=== PATIENT | male | born 1930 | race Two or more races ===

== ENCOUNTER 2016-07-28 15:17 | Emergency (ER) | payer MEDICARE ==
[~2016-07-28] VITALS: Ht 172.7 cm; Wt 63.5 kg
[2016-07-28 16:11] LABS: KETONES,URINE NEGATIVE (NEGATIVE); LEUKOCYTE ESTERASE ,URINE 2+ (NEGATIVE); NITRITE,URINE POSITIVE (NEGATIVE); PH,URINE 6.5 (4.5-8.0); PROTEIN,URINE 4+ (NEGATIVE); UROBILINOGEN,URINE NORMAL MG/DL (0.0-1.0)
[2016-07-28 16:14] LABS: APPEARANCE,URINE SLIGHTLY CLOUDY
[2016-07-28 16:38] LABS: AMORPHOUS SEDIMENT,UR FEW /LPF; BACTERIA,URINE MODERATE /HPF; RBC,URINE 20-30 /HPF (0 - 0); YEAST,URINE FEW /HPF
--- NOTE | 2016-07-28 17:18 | Emergency Room Report ---
History of Present Illness General Chief Complaint: Male Urogenital Problems Source: Patient, PMD Present Illness HPI 86 YOM on start of 14 day tx with Bactrim for alleged UTI presents with blood in ty bag. On ASA. Denies abd pain, nausea/vomiting, diarrhea, fever/chills , flank pain. History confirmed with Dr Vick Smith. Denies smoking, history of bladder cancer. Allergies: Coded Allergies: No Known Allergies (Unverified , 07/28/16) Patient History Past Medical History: other - UTI Past Surgical History: none Pertinent Family History: none Social History: Denies: alcohol use, drug use, smoking Immunizations: UTD Review of Systems All Other Systems: negative except mentioned in HPI Physical Exam Vital Signs Date Time Temp Pulse Resp B/P Pulse Ox O2 Delivery O2 Flow Rate FiO2 07/28/16 15:13 97.3 76 20 142/72 100 Room Air Sp02 EP Interpretation: reviewed, normal General Appearance: normal inspection, well appearing, no apparent distress, alert Head: atraumatic ENT: normal ENT inspection, hearing grossly normal, normal voice Neck: normal inspection, full range of motion, supple, no bony tend Respiratory: normal inspection, lungs clear, normal breath sounds, no respiratory distress, no retraction, no wheezing Cardiovascular #1: regular rate, rhythm, no edema Genitourinary: no CVA tenderness, other - pink discoloration of urine in ty Musculoskeletal: normal inspection, back normal, normal range of motion, Julia' s Sign negative Neurologic: normal inspection, alert, oriented x3, responsive, transporter driver III-XII nml as tested, motor strength/tone normal, speech normal Psychiatric: normal inspection, judgement/insight normal, mood/affect normal Skin: normal inspection, normal color, no rash Lymphatic: normal inspection Medical Decision Making Diagnostic Impression: Primary Impression: UTI (urinary tract infection) Qualified Codes: N30.01 - Acute cystitis with hematuria ER Course UA shows + nitrites, blood. VSS. Afebrile. No abd complaints. Normal mental status. Asymptomatic hematuria. No systemic symptoms concerning for pyelo, sepsis at this time. Hematuria likely combination of known cystitis +/-ASA use Jameson Hickman who recommends continue outpatient Bactrim, F/up with PMD outpatient. Case number given below. Reevaluation Time: 17:18 Last Vital Signs Date Time Temp Pulse Resp B/P Pulse Ox O2 Delivery O2 Flow Rate FiO2 07/28/16 15:13 97.3 76 20 142/72 100 Room Air Status: improved Reevaluation Impression Dr Hickman agrees for DC. Disposition: HOME, SELF-CARE Condition: Improved Patient Instructions: Urinary Tract Infection Additional Instructions: - Continue ALL antibiotics until complete - Eugene requests you followup with your primary doctor in 2-3 days - Drink plenty of fluids MILES SOLANO M.D. Jul 28, 2016 17:18
[2016-07-28 17:25] VITALS: BP 119/63
== END 2016-07-28 18:00 | disposition home or self-care (01) ==
LOC: EDBD 15:17 → EMR 18:00
DX: N30.01 Acute cystitis with hematuria (principal); Z79.82 Long term (current) use of aspirin
CPT/HCPCS: 81003; 87086; 99282